=== PATIENT | female | born 1975 | race Caucasian/White ===

== ENCOUNTER 2018-08-12 14:13 | Emergency (ER) | payer OTHER ==
[2018-08-12 14:23] VITALS: BP 123/67; PULSE 88; TEMP 98.1; BMI 37.2
[2018-08-12] MEDS ORDERED: KETOROLAC TROMETHAMINE 60 MG/2 ML VIAL IM ONE (14:36)
[2018-08-12] MEDS ORDERED: CYCLOBENZAPRINE HCL 10 MG TABLET (FP) PO ONE (14:36)
[2018-08-12] MEDS ORDERED: KETOROLAC TROMETHAMINE 60 MG/2 ML VIAL ONE (14:37)
[2018-08-12] MEDS ORDERED: CYCLOBENZAPRINE HCL 10 MG TABLET (FP) ONE (14:38)
--- NOTE | 2018-08-12 14:49 | PDOC ---
History of Present Illness - General Chief Complaint: Injury Stated Complaint: FALL Time Seen by Provider: 08/12/18 14:31 History Source: Patient Exam Limitations: Clinical Condition - History of Present Illness Initial Comments: 08/12/18 14:43 Patient with no significant past medical history present with complaint of pain to left forearm and hand and lower back status post slip and fall going down a staircase overnight. Patient denies hitting head or loss of consciousness. Patient reports severe pain to lateral aspect of distal left forearm and back of left hand. Patient reported increased pain to lower back when getting up from sitting or laying position. Patient denies any other symptoms Timing/Duration: 24 hours Past History - Past Medical History Allergies/Adverse Reactions: Allergies Allergy/AdvReac Type Severity Reaction Status Date / Time No Known Allergies Allergy Verified 03/15/12 09:50 Home Medications: Ambulatory Orders Methocarbamol [Robaxin -] 500 mg PO TID #21 tablet 08/12/18 Naproxen 500 mg PO BID PRN #20 tablet 08/12/18 Oxycodone HCl/Acetaminophen [Percocet 5-325 mg Tablet] 1 tab PO Q6H PRN #6 tablet MDD 3 08/12/18 COPD: No Diabetes: Yes (type II) - Surgical History Cholecystectomy: Yes - Immunization History Immunization Up to Date: Yes - Suicide/Smoking/Psychosocial Hx Smoking Status: Yes Smoking History: Current every day smoker Have you smoked in the past 12 months: Yes Number of Cigarettes Smoked Daily: 7 Information on smoking cessation initiated: No Hx Alcohol Use: No Drug/Substance Use Hx: No Review of Systems - Review of Systems Able to Perform ROS?: Yes Is the patient limited Italian proficient: No Constitutional: No: Weakness HEENTM: No: Symptoms Reported Respiratory: No: Symptoms reported Cardiac (ROS): No: Symptoms Reported ABD/GI: No: Symptoms Reported Musculoskeletal: Yes: Back Pain (diffused lower back), Joint Swelling (left wrist), Muscle Pain (left forearm and hand). No: Muscle Weakness Neurological: No: Numbness, Paresthesia, Tingling, Dizziness All Other Systems: Reviewed and Negative *Physical Exam - Vital Signs Last Vital Signs Temp Pulse Resp BP Pulse Ox 98.1 F 88 18 123/67 94 L 08/12/18 14:16 08/12/18 14:16 08/12/18 14:16 08/12/18 14:16 08/12/18 14:16 - Physical Exam Comments: 08/12/18 14:46 GENERAL: Well developed, well nourished. Awake and alert. No acute distress. CARDIOVASCULAR: Regular rate and rhythm. No murmurs, rubs, or gallops. PULMONARY: No evidence of respiratory distress. Lungs clear to auscultation bilaterally. No wheezing, rales or rhonchi. ABDOMINAL: Soft. Non-tender. Non-distended. No rebound or guarding. No organomegaly. Normoactive bowel sounds MUSCULOSKELETAL : moderate tenderness over lateral aspect of distal forearm with mild skin tugging of left mid-forearm. mild swelling to dorsal aspect of left wrist and hand. moderate tenderness over paravertebral muscle of L3-S1 on b /l sides SKIN: Warm and dry. Normal capillary refill. No rashes. No jaundice. NEUROLOGICAL: Alert, awake, appropriate. No motor deficits in the lower extremities. Gait is normal without ataxia. PSYCHIATRIC: Cooperative. Good eye contact. Appropriate mood and affect. General Appearance: Yes: Nourished, Appropriately Dressed, Moderate Distress Moderate Sedation - Procedure Monitoring Vital Signs: Procedure Monitoring Vital Signs Temperature 98.1 F 08/12/18 14:16 Pulse Rate 88 08/12/18 14:16 Respiratory Rate 18 08/12/18 14:16 Blood Pressure 123/67 08/12/18 14:16 O2 Sat by Pulse Oximetry (%) 94 L 08/12/18 14:16 ED Treatment Course - RADIOLOGY Radiology Studies Ordered: Category Date Time Status FOREARM- LEFT [RAD] Stat Radiology 08/12/18 14:36 Ordered HAND- LEFT [RAD] Stat Radiology 08/12/18 14:36 Ordered SPINE-LUMBAR SACRAL [RAD] Stat Radiology 08/12/18 14:36 Ordered Medical Decision Making - Medical Decision Making 08/12/18 14:49 08/12/18 14:43 Patient with no significant past medical history present with complaint of pain to left forearm and hand and lower back status post slip and fall going down a staircase overnight. Patient denies hitting head or loss of consciousness. Exam significant for moderate tenderness over lateral aspect of distal forearm with mild skin tugging of left mid-forearm. mild swelling to dorsal aspect of left wrist and hand. moderate tenderness over paravertebral muscle of L3-S1 on b /l sides. x-rays of left forearm, hand and lumbosacral ordered. Toradol 60mg IM and Flexiril 10mg PO ordered for pain 08/12/18 15:33 X-ray of left forearm, hand and lumbosacral shows no acute fracture or dislocation. Patient symptoms likely forearm and back sprain. Patient is stable for discharge on NSAIDs and muscle relaxer with orthopedist follow-up as needed. *DC/Admit/Observation/Transfer Diagnosis at time of Disposition: Muscle strain Lumbago Qualifiers: Chronicity: acute Back pain laterality: bilateral Sciatica presence: without sciatica Qualified Code(s): M54.5 - Low back pain Sprain of left forearm Qualifiers: Encounter type: initial encounter Qualified Code(s): S63.502A - Unspecified sprain of left wrist, initial encounter Sprain of left hand Qualifiers: Encounter type: initial encounter Qualified Code(s): S63.92XA - Sprain of unspecified part of left wrist and hand, initial encounter - Discharge Dispostion Disposition: HOME Condition at time of disposition: Stable Decision to Admit order: No - Prescriptions Prescriptions: Methocarbamol [Robaxin -] 500 mg PO TID #21 tablet Naproxen 500 mg PO BID PRN #20 tablet PRN Reason: Back Pain Oxycodone HCl/Acetaminophen [Percocet 5-325 mg Tablet] 1 tab PO Q6H PRN #6 tablet MDD 3 PRN Reason: severe pain - Referrals Referrals: Pancho Smith MD [Primary Care Provider] - Naresh Bajwa MD [Staff Physician] - - Patient Instructions Printed Discharge Instructions: Sprain Additional Instructions: Your x-ray shows no fracture. Take medication as prescribed. Apply hot compresses to lower back and left arm 2-3 times a day for 5-10 minutes as needed. Follow-up referred orthopedics if no improvement in 4 days. - Post Discharge Activity
== END 2018-08-12 15:37 | disposition home or self-care (01) ==
LOC: JERFT 14:13
PROC: 3E0233Z Introduction of Anti-inflammatory into Muscle, Percutaneous Approach (ICD-10-PCS; principal; 2018-08-12)
DX: S39.012A Strain of muscle, fascia and tendon of lower back, initial encounter (principal); S63.8X2A Sprain of other part of left wrist and hand, initial encounter; W10.8XXA Fall (on) (from) other stairs and steps, initial encounter; Y93.89 Activity, other specified; Y92.89 Other specified places as the place of occurrence of the external cause; Y99.8 Other external cause status
CPT/HCPCS: 72100-TC-FY; 73090-TC-LT-FY; 73130-TC-LT-FY; 96372; 99281-25